=== PATIENT | male | born 1995 | race Two or more races ===

== ENCOUNTER 2021-12-06 00:10 | Emergency (ER) | payer SELFPAY ==
[2021-12-06] MEDS ORDERED: NORCO 5-325 TA1 EACH PO (03:25)
[2021-12-06] MEDS ORDERED: VIBRAMYCIN100 MG PO (03:25)
== END 2021-12-06 03:42 | disposition home or self-care (01) ==
LOC: FER 00:10
DX: S51.811A Laceration without foreign body of right forearm, initial encounter (principal); F17.210 Nicotine dependence, cigarettes, uncomplicated; Z23 Encounter for immunization; W25.XXXA Contact with sharp glass, initial encounter; Y92.009 Unspecified place in unspecified non-institutional (private) residence as the place of occurrence of the external cause
CPT/HCPCS: 90471; 90715